=== PATIENT | male | born 1990 | race African-American/Black ===

== ENCOUNTER 2018-05-30 17:03 | Emergency (ER) | payer MEDICAID ==
[~2018-05-30] VITALS: Ht 172.7 cm; Wt 72.7 kg
[2018-05-30 18:24] LABS: HEMATOCRIT. 45.7 % (42.0-52.0); HEMOGLOBIN. 15.1 g/dL (14.0-18.0); MEAN CORPUSCULAR HEMOGLOBIN 29.1 pg (28.0-32.0); MEAN CORPUSCULAR VOLUME 88.1 fL (80.0-94.0); MEAN PLATELET VOLUME 9.3 fl (7.4-10.4); PLATELET 226 x1000/uL (130-400); RED BLOOD CELL COUNT 5.19 mill/uL (4.7-6.1); RED CELL DISTRIBUTION WIDTH 13.7 % (11.6-14.6)
[2018-05-30 18:29] LABS: CHLORIDE 105 mEq/L (98-107)
[2018-05-30 18:39] LABS: ETHANOL BLOOD < 10 mg/dL
[2018-05-30] MEDS ORDERED: SODIUM CHLORIDE 0.9% 1,000 ML IV ONE ×2 (19:40→19:55)
[2018-05-30] MEDS ORDERED: LORAZEPAM 1MG TABLET PO ONE (19:45)
[2018-05-30 19:53] LABS: PLATELET ESTIMATE NORMAL
[2018-05-30 21:15] LABS: CLARITY URINE CLEAR (CLEAR); COLOR URINE YELLOW (YELLOW); KETONES URINE 2+ (NEGATIVE); LEUKOCYTE ESTERASE URINE NEGATIVE (NEGATIVE); NITRITE URINE NEGATIVE (NEGATIVE); OCCULT BLOOD URINE NEGATIVE (NEGATIVE); PROTEIN URINE 2+ (NEGATIVE); SPECIFIC GRAVITY URINE 1.024 (1.005-1.030); UROBILINOGEN URINE 0.2 E.U./dL (0.2-1.0)
[2018-05-30 21:26] LABS: *AMPHETAMINES SCREEN URINE PRESUMTIVE POSITIVE (NEGATIVE); *BARBITURATES SCREEN URINE NEGATIVE (NEGATIVE); *BENZODIAZEPINES SCREEN URINE NEGATIVE (NEGATIVE); *COCAINE SCREEN URINE NEGATIVE (NEGATIVE)
[2018-05-30 21:27] LABS: CANNABINOID URINE SCREEN PRESUMTIVE POSITIVE (NEGATIVE); METHADONE URINE SCREEN NEGATIVE (NEGATIVE); OPIATES URINE SCREEN NEGATIVE (NEGATIVE); PHENCYCLIDINE URINE SCREEN NEGATIVE (NEGATIVE)
[2018-05-30 22:15] VITALS: BP 159/76
== END 2018-05-30 22:16 | disposition home or self-care (01) ==
LOC: ER 17:52
DX: T43.621A Poisoning by amphetamines, accidental (unintentional), initial encounter (principal); R00.0 Tachycardia, unspecified; L03.313 Cellulitis of chest wall; F12.10 Cannabis abuse, uncomplicated; F14.10 Cocaine abuse, uncomplicated; D72.829 Elevated white blood cell count, unspecified; Y92.488 Other paved roadways as the place of occurrence of the external cause
CPT/HCPCS: 36415; 80053; 80305; 80307; 80329; 81003; 85025; 93005; 99285; G0482; J7030; Z7610